=== PATIENT | male | born 1960 | race Asian ===

== ENCOUNTER 2017-03-05 17:09 | Emergency (ER) | payer OTHER ==
[~2017-03-05] VITALS: Ht 165.1 cm; Wt 71.7 kg
[2017-03-05 20:07] VITALS: BP 135/78
== END 2017-03-05 20:07 | disposition home or self-care (01) ==
LOC: ED 17:09
DX: S91.134A Puncture wound without foreign body of right lesser toe(s) without damage to nail, initial encounter (principal); R03.0 Elevated blood-pressure reading, without diagnosis of hypertension; X58.XXXA Exposure to other specified factors, initial encounter; Y93.89 Activity, other specified; Y92.89 Other specified places as the place of occurrence of the external cause; Y99.8 Other external cause status
CPT/HCPCS: 90715